=== PATIENT | female | born 1985 | race Caucasian/White ===

== ENCOUNTER 2017-02-22 13:37 | Emergency (ER) | payer OTHER ==
[~2017-02-22] VITALS: Ht 152.4 cm; Wt 54.4 kg
[~2017-02-22 13:37] MED LIST: AMOXIL500 MG PO; ANTIBIOTIC O500 U/GM TP; AUGMENTIN 875 M1 TAB PO; AUGMENTIN400 MG/5 M PO; AURALGAN 15 ML15 ML OT; BUSPAR15 MG PO; CELEXA20 MG PO; CEPHALEXIN500 M1 PO; CIPRO250 MG PO; DARVOCET N 1001 TAB PO; DOXYCYCLINE MO100 MG PO; FLONASE 0.05% 121 EA NAS; MOTRIN600 MG PO; MOTRIN800 MG PO; NAPROXEN SOD550 MG PO; NORCO 5-325 TA1 EACH PO; PHENERGAN W/ DE30 ML PO; PREDNICOT10 MG PO; SEPTRA DS 800 M1 TAB PO; TRAMADOL HCL50 MG PO; XANAX0.5 MG PO; ZOFRAN ODT4 MG SL; ZOLOFT25 MG PO; ZOLOFT50 MG PO; ZYRTEC10 M2 PO
[2017-02-22] MEDS ORDERED: CLARITIN10 M1 PO (13:46)
[2017-02-22] MEDS ORDERED: XANAX0.5 MG PO (13:46)
[2017-02-22 14:26] LABS: BASO % 0.3 % (0.0-1.0); EOS % 0.4 % (1.0-4.0); HEMATOCRIT 39.9 % (37.0-47.0); HEMOGLOBIN 13.2 g/dl (12.0-16.0); LYMPH # 0.8 10*3/uL (1.3-4.4); LYMPH % 11.4 % (27.0-41.0); MEAN CELL VOLUME 86.9 fl (81.0-99.0); MEAN CORPUSCULAR HGB 28.8 pg (27.0-31.0); MEAN CORPUSCULAR HGB CONC 33.1 g/dl (33.0-37.0); MEAN PLATELET VOLUME 9.9 fl (9.6-12.3); MONO # 0.4 10*3/uL (0.1-1.0); MONO % 4.9 % (3.0-9.0); NEUT # 5.9 10*3/uL (2.3-7.9); NEUT % 82.7 % (47.0-73.0); PLATELET COUNT AUTOMATED 275 10*3/uL (130-400); RED BLOOD COUNT 4.59 10*6/uL (4.10-5.10); RED CELL DISTRI WIDTH 12.6 % (0-14.5); WHITE BLOOD COUNT 7.2 10*3/uL (4.8-10.8)
[2017-02-22 14:42] LABS: ALBUMIN 3.8 gm/dl (3.1-4.5); ALKALINE PHOSPHATASE 46 U/L (45-117); BILIRUBIN, TOTAL 0.6 mg/dl (0.2-1.0); BUN 13 mg/dl (7-24); CARBON DIOXIDE 24 mmol/L (21-32); CHLORIDE 107 mmol/L (98-107); EST GLOM FILT AFRICAN AMERICAN > 60 ml/min; GLUCOSE 94 mg/dL (65-99); POTASSIUM 3.2 mmol/L (3.5-5.1); SGOT/AST 20 IU/L (3-35); SGPT/ALT 28 U/L (12-78); SODIUM 141 mmol/L (136-145); TOTAL PROTEIN 7.4 gm/dL (6.4-8.2)
[2017-02-22 15:39] LABS: BILIRUBIN NEGATIVE (NEGATIVE); BLOOD NEGATIVE (NEGATIVE); CLARITY CLOUDY (CLEAR); COLOR YELLOW (YELLOW); GLUCOSE NEGATIVE (NEGATIVE); KETONE 1+ (NEGATIVE); LEUKO ESTERASE TRACE (NEGATIVE); NITRITE NEGATIVE (NEGATIVE); PROTEIN NEGATIVE (NEGATIVE)
[2017-02-22 15:48] LABS: BACTERIA 3+; EPITHELIAL CELLS 30-35; URINE REFLEX COMMENT YES (NO)
[2017-02-22] MEDS ORDERED: ZOFRAN ODT4 MG SL (15:51)
[2017-02-22] MEDS ORDERED: K-TAB20 MEQ PO (15:51)
== END 2017-02-22 16:33 | disposition home or self-care (01) ==
LOC: ED 13:37
PROVIDERS: Physician Assistant
DX: K52.9 Noninfective gastroenteritis and colitis, unspecified (principal); Z98.890 Other specified postprocedural states; Z79.899 Other long term (current) drug therapy

== ENCOUNTER 2017-06-15 04:28 | Emergency (ER) | payer OTHER ==
[~2017-06-15] VITALS: Ht 152.4 cm; Wt 59.0 kg
[~2017-06-15 04:28] MED LIST changes: +CLARITIN10 M1 PO; +K-TAB20 MEQ PO
[2017-06-15 04:54] LABS: BILIRUBIN NEGATIVE (NEGATIVE); BLOOD NEGATIVE (NEGATIVE); CLARITY CLOUDY (CLEAR); COLOR YELLOW (YELLOW); GLUCOSE NEGATIVE (NEGATIVE); KETONE NEGATIVE (NEGATIVE); LEUKO ESTERASE 1+ (NEGATIVE); NITRITE NEGATIVE (NEGATIVE); PROTEIN NEGATIVE (NEGATIVE); UROBILINOGEN 0.2 E.U./dl (0.2-1.0)
[2017-06-15] MEDS ORDERED: NAPROSYN500 MG PO (04:55)
[2017-06-15] MEDS ORDERED: NORCO 5-325 TA1 EACH PO (04:55)
[2017-06-15] MEDS ORDERED: Orphenadrine C100 MG PO (04:55)
[2017-06-15 05:02] LABS: BACTERIA 3+; EPITHELIAL CELLS 20-25; URINE REFLEX COMMENT YES (NO)
[2017-06-15] MEDS ORDERED: MACROBID100 M1 PO (05:14)
== END 2017-06-15 05:31 | disposition home or self-care (01) ==
LOC: ED 04:28
PROVIDERS: Emergency Medicine Emergency Medical Services
DX: N39.0 Urinary tract infection, site not specified (principal); F17.200 Nicotine dependence, unspecified, uncomplicated; Z79.899 Other long term (current) drug therapy

== ENCOUNTER 2017-11-21 22:05 | Emergency (ER) | payer OTHER ==
[~2017-11-21] VITALS: Ht 152.4 cm; Wt 63.5 kg
[~2017-11-21 22:05] MED LIST changes: +MACROBID100 M1 PO; +NAPROSYN500 MG PO; +Orphenadrine C100 MG PO
[2017-11-21 22:24] LABS: BILIRUBIN NEGATIVE (NEGATIVE); BLOOD NEGATIVE (NEGATIVE); CLARITY CLOUDY (CLEAR); COLOR YELLOW (YELLOW); GLUCOSE NEGATIVE (NEGATIVE); KETONE NEGATIVE (NEGATIVE); LEUKO ESTERASE 1+ (NEGATIVE); NITRITE NEGATIVE (NEGATIVE)
[2017-11-21 22:30] LABS: BACTERIA 2+; EPITHELIAL CELLS 15-20; RBC 0-2 rbc/hpf (0-2)
[2017-11-21] MEDS ORDERED: KETOROLAC10 MG PO (23:11)
[2017-11-21] MEDS ORDERED: Orphenadrine C100 MG PO (23:11)
== END 2017-11-21 23:26 | disposition home or self-care (01) ==
LOC: ED 22:05
PROVIDERS: Emergency Medicine Emergency Medical Services
DX: M54.5 Low back pain (principal); Z79.899 Other long term (current) drug therapy

== ENCOUNTER 2018-02-24 22:56 | Emergency (ER) | payer OTHER ==
[~2018-02-24] VITALS: Ht 152.4 cm; Wt 62.6 kg
[~2018-02-24 22:56] MED LIST changes: +KETOROLAC10 MG PO
[2018-02-24] MEDS ORDERED: AMITRIPTYLINE25 MG PO (23:01)
[2018-02-25] MEDS ORDERED: MEDROL DOSEPAK4 MG PO (01:22)
[2018-02-25] MEDS ORDERED: KETOROLAC10 MG PO (01:22)
== END 2018-02-25 01:33 | disposition home or self-care (01) ==
LOC: ED 22:56
DX: M54.5 Low back pain (principal); Z79.899 Other long term (current) drug therapy; Z98.890 Other specified postprocedural states

== ENCOUNTER 2019-08-27 20:01 | Emergency (ER) | payer OTHER ==
[~2019-08-27] VITALS: Ht 152.4 cm; Wt 59.0 kg
[~2019-08-27 20:01] MED LIST changes: +AMITRIPTYLINE25 MG PO; +MEDROL DOSEPAK4 MG PO; +SEPTDS PO
[2019-08-27] MEDS ORDERED: KEFLEX500 M1 PO (20:20)
== END 2019-08-27 20:28 | disposition home or self-care (01) ==
LOC: ED 20:01
DX: S61.213A Laceration without foreign body of left middle finger without damage to nail, initial encounter (principal); W26.0XXA Contact with knife, initial encounter; Y93.89 Activity, other specified; Y92.89 Other specified places as the place of occurrence of the external cause; Y99.8 Other external cause status

== ENCOUNTER 2020-01-23 12:49 | Emergency (ER) | payer OTHER ==
[~2020-01-23] VITALS: Ht 152.4 cm; Wt 59.0 kg
[~2020-01-23 12:49] MED LIST changes: +KEFLEX500 M1 PO
[2020-01-23 14:32] LABS: BASO % 0.6 % (0.0-1.0); HEMATOCRIT 40.7 % (37.0-47.0); HEMOGLOBIN 13.3 g/dl (12.0-16.0); LYMPH # 1.2 10*3/uL (1.3-4.4); LYMPH % 21.1 % (27.0-41.0); MEAN CELL VOLUME 88.1 fl (81.0-99.0); MEAN CORPUSCULAR HGB 28.8 pg (27.0-31.0); MEAN CORPUSCULAR HGB CONC 32.7 g/dl (33.0-37.0); MONO # 0.6 10*3/uL (0.1-1.0); MONO % 11.4 % (3.0-9.0); NEUT # 3.6 10*3/uL (2.3-7.9); NEUT % 66.5 % (47.0-73.0); PLATELET COUNT AUTOMATED 323 10*3/uL (130-400); RED BLOOD COUNT 4.62 10*6/uL (4.10-5.10); RED CELL DISTRI WIDTH 12.9 % (0-14.5); WHITE BLOOD COUNT 5.5 10*3/uL (4.8-10.8)
[2020-01-23 14:47] LABS: ALBUMIN 4.2 gm/dl (3.1-4.5); BUN 8 mg/dl (7-24); CHLORIDE 104 mmol/L (98-107); POTASSIUM 3.1 mmol/L (3.5-5.1); SGOT/AST 21 IU/L (3-35); SGPT/ALT 26 U/L (12-78); SODIUM 139 mmol/L (136-145); TOTAL PROTEIN 7.9 gm/dL (6.4-8.2)
[2020-01-23 14:48] LABS: ALKALINE PHOSPHATASE 55 U/L (45-117)
[2020-01-23 14:51] LABS: BILIRUBIN NEGATIVE (NEGATIVE); CLARITY SL CLOUDY (CLEAR); COLOR YELLOW (YELLOW); GLUCOSE NEGATIVE (NEGATIVE)
[2020-01-23 14:52] LABS: BLOOD NEGATIVE (NEGATIVE); KETONE NEGATIVE (NEGATIVE); LEUKO ESTERASE 1+ (NEGATIVE); NITRITE NEGATIVE (NEGATIVE); UROBILINOGEN 0.2 E.U./dl (0.2-1.0)
[2020-01-23 14:57] LABS: BACTERIA 2+; EPITHELIAL CELLS 15-20; RBC 0-2 rbc/hpf (0-2)
[2020-01-23] MEDS ORDERED: SEPTDS PO (16:57)
== END 2020-01-23 17:00 | disposition home or self-care (01) ==
LOC: ED 12:49
PROVIDERS: Internal Medicine
DX: N39.0 Urinary tract infection, site not specified (principal); R07.89 Other chest pain; R05 Cough; R06.02 Shortness of breath; F17.200 Nicotine dependence, unspecified, uncomplicated; Z79.2 Long term (current) use of antibiotics

== ENCOUNTER → 2023-04-05 | Outpatient (CLI) | payer OTHER | END | disposition home or self-care (01) | LOC: LAB 14:35 | PROVIDERS: ATTEND Nurse Practitioner Family | DX: N30.00 Acute cystitis without hematuria (principal) ==

== ENCOUNTER 2024-08-14 19:13 | Emergency (ER) | payer OTHER ==
[~2024-08-14] VITALS: Ht 152.4 cm; Wt 63.5 kg
[2024-08-14 20:16] LABS: BASO # 0.1 10*3/uL (0.0-0.1); BASO % 0.5 % (0.0-1.0); EOS % 0.4 % (1.0-4.0); HEMATOCRIT 39.6 % (37.0-47.0); LYMPH % 20.3 % (27.0-41.0); MEAN CELL VOLUME 88.4 fl (81.0-99.0); MEAN CORPUSCULAR HGB 28.1 pg (27.0-31.0); MEAN CORPUSCULAR HGB CONC 31.8 g/dl (33.0-37.0); MEAN PLATELET VOLUME 10.2 fl (9.6-12.3); MONO # 0.7 10*3/uL (0.1-1.0); MONO % 7.3 % (3.0-9.0); NEUT % 71.1 % (47.0-73.0); PLATELET COUNT AUTOMATED 356 10*3/uL (130-400); RED BLOOD COUNT 4.48 10*6/uL (4.10-5.10); RED CELL DISTRI WIDTH 13.8 % (0-14.5); WHITE BLOOD COUNT 9.8 10*3/uL (4.8-10.8)
[2024-08-14 20:30] LABS: BUN 15 mg/dl (9-23); CHLORIDE 104 mmol/L (98-107); POTASSIUM 3.9 mmol/L (3.4-5.1)
[2024-08-14] MEDS ORDERED: PREDNISONE50 MG PO (21:00)
[2024-08-14] MEDS ORDERED: DEXAMETHASONE 4 MG TAB PO ONE (21:00)
[2024-08-14] MEDS ORDERED: AZITHROMYCIN 250 MG TAB PO ONE (21:00)
[2024-08-14] MEDS ORDERED: ZITHROMAX250 MG PO (21:00)
[2024-08-14] MEDS ORDERED: VENT7GM INH (21:08)
== END 2024-08-14 21:10 | disposition home or self-care (01) ==
LOC: ED 19:13
PROVIDERS: Nurse Practitioner Family
DX: J98.4 Other disorders of lung (principal); F41.9 Anxiety disorder, unspecified; Z98.890 Other specified postprocedural states

== ENCOUNTER 2024-12-17 20:32 | Emergency (ER) | payer OTHER ==
[~2024-12-17] VITALS: Ht 152.4 cm; Wt 68.0 kg
[~2024-12-17 20:32] MED LIST changes: +PREDNISONE50 MG PO; +VENT7GM INH; +ZITHROMAX250 MG PO
[2024-12-17] MEDS ORDERED: methylPREDNISolone sod succ 125 MG VIAL IM ONE (22:30)
[2024-12-17] MEDS ORDERED: ZITHROMAX250 MG PO (22:35)
[2024-12-17] MEDS ORDERED: PREDNISONE20 M1 PO (22:35)
== END 2024-12-17 22:39 | disposition home or self-care (01) ==
LOC: ED 20:32
DX: B34.9 Viral infection, unspecified (principal); Z20.822 Contact with and (suspected) exposure to COVID-19; F41.9 Anxiety disorder, unspecified; H92.03 Otalgia, bilateral; Z98.890 Other specified postprocedural states

== ENCOUNTER 2025-02-24 20:14 | Inpatient (IN) | payer OTHER ==
[~2025-02-24] VITALS: Ht 152.4 cm; Wt 74.2 kg
[~2025-02-24 20:14] MED LIST changes: +PREDNISONE20 M1 PO
[2025-02-24 20:26] VITALS: BP 119/68
[2025-02-24] MEDS ORDERED: Dicyclomine Hydrochloride 20 MG/10 ML OSYR PO STA (20:39)
[2025-02-24] MEDS ORDERED: Lidocaine Hydrochloride 15 ML UDC PO STA (20:39)
[2025-02-24] MEDS ORDERED: MG-AL HYDROXIDE/SIMETICONE 30 ML UDC PO STA (20:39)
[2025-02-24 20:54] LABS: BASO % 0.5 % (0.0-1.0); EOS % 0.3 % (1.0-4.0); HEMATOCRIT 36.8 % (37.0-47.0); MEAN CELL VOLUME 85.8 fl (81.0-99.0); MEAN CORPUSCULAR HGB 27.5 pg (27.0-31.0); MEAN CORPUSCULAR HGB CONC 32.1 g/dl (33.0-37.0); MEAN PLATELET VOLUME 9.7 fl (9.6-12.3); MONO # 0.7 10*3/uL (0.1-1.0); NEUT # 5.5 10*3/uL (2.3-7.9); NEUT % 62.3 % (47.0-73.0); PLATELET COUNT AUTOMATED 364 10*3/uL (130-400); RED BLOOD COUNT 4.29 10*6/uL (4.10-5.10); RED CELL DISTRI WIDTH 13.2 % (0-14.5); WHITE BLOOD COUNT 8.8 10*3/uL (4.8-10.8)
[2025-02-24 21:05] LABS: ACT PARTIAL THROMBO TIME 24.5 SECONDS (20.0-32.1)
[2025-02-24 21:08] LABS: URINE AMPHETAMINES Negative (1000ng/ml); URINE BARBITURATES Negative (200ng/ml); URINE BENZODIAZEPINES Negative (200ng/ml); URINE CANNABINOIDS (THC) Negative (50ng/ml); URINE COCAINE Negative (300ng/ml); URINE METHADONE Negative (300ng/ml); URINE OPIATES Negative (300ng/ml); URINE PHENCYCLIDINE Negative (25ng/ml)
[2025-02-24 21:11] LABS: BUN 13 mg/dl (9-23); CHLORIDE 105 mmol/L (98-107); POTASSIUM 3.2 mmol/L (3.4-5.1)
[2025-02-24 21:13] LABS: ETHYL ALCOHOL < 3.0 mg/dl (<3)
[2025-02-24] MEDS ORDERED: MORPHINE Sulfate 2 MG/ML SYR IM ONE (22:55)
[2025-02-25 00:14] VITALS: BP 118/65
[2025-02-25] MEDS ORDERED: POTASSIUM CHLORIDE 20 MEQ TAB PO ONE (00:35)
[2025-02-25] MEDS ORDERED: ACETAMINOPHEN 650 MG SUPP R PRN (00:35)
[2025-02-25] MEDS ORDERED: Magnesium Hydroxide 30 ML UDC PO PRN (00:35)
[2025-02-25] MEDS ORDERED: BISACODYL 10 MG SUPP R PRN (00:35)
[2025-02-25] MEDS ORDERED: Ondansetron Hydrochloride 4 MG/2 ML VIAL IV PRN (00:35)
[2025-02-25] MEDS ORDERED: Acetaminophen/Hydrocodone 5 MG/325 MG TABLET PO PRN (00:35)
[2025-02-25] MEDS ORDERED: ACETAMINOPHEN 325 MG TAB PO PRN (00:35)
[2025-02-25] MEDS ORDERED: BISACODYL 5 MG TAB PO PRN (00:35)
[2025-02-25] MEDS ORDERED: ATORVASTATIN CALCIUM 40 MG TABLET PO SCH (00:55)
[2025-02-25] MEDS ORDERED: Metoprolol Tartrate 25 MG TAB PO SCH (00:55)
[2025-02-25] MEDS ORDERED: ASPIRIN 325 MG ENTERIC COATED PO ONE (00:55)
[2025-02-25 06:31] LABS: BASO % 0.5 % (0.0-1.0); EOS # 0.1 10*3/uL (0.0-0.4); EOS % 0.8 % (1.0-4.0); HEMATOCRIT 36.2 % (37.0-47.0); MEAN CELL VOLUME 86.6 fl (81.0-99.0); MEAN CORPUSCULAR HGB CONC 32.3 g/dl (33.0-37.0); MEAN PLATELET VOLUME 9.6 fl (9.6-12.3); MONO # 0.5 10*3/uL (0.1-1.0); MONO % 7.8 % (3.0-9.0); NEUT # 3.3 10*3/uL (2.3-7.9); NEUT % 56.4 % (47.0-73.0); PLATELET COUNT AUTOMATED 357 10*3/uL (130-400); RED BLOOD COUNT 4.18 10*6/uL (4.10-5.10); RED CELL DISTRI WIDTH 13.3 % (0-14.5); WHITE BLOOD COUNT 5.9 10*3/uL (4.8-10.8)
[2025-02-25 07:20] LABS: ALKALINE PHOSPHATASE 81 U/L (46-116); BUN 16 mg/dl (9-23); CHLORIDE 106 mmol/L (98-107); CHOLESTEROL 118 mg/dL (<200); FREE T4 1.55 ng/dl (0.89-1.76); LDL CHOLESTEROL 65 mg/dL (9-159); SGPT/ALT 318 U/L (5-49); TOTAL PROTEIN 6.5 gm/dL (6.0-8.0); TRIGLYCERIDES 61 mg/dl (<150)
[2025-02-25 08:00] VITALS: BP 100/60
[2025-02-25] MEDS ORDERED: Enoxaparin Sodium 40 MG/0.4 ML SYR SC SCH (10:00)
[2025-02-25] MEDS ORDERED: ASPIRIN ENTERIC COATED 81 MG TAB PO SCH (10:00)
[2025-02-25 12:00] VITALS: BP 107/61
[2025-02-25 16:00] VITALS: BP 98/64
[2025-02-25 20:00] VITALS: BP 110/67
[2025-02-26] VITALS (10 sets, daily range): BP systolic 96–132; BP diastolic 56–81
[2025-02-26 06:21] LABS: BASO # 0.1 10*3/uL (0.0-0.1); BASO % 0.8 % (0.0-1.0); EOS # 0.1 10*3/uL (0.0-0.4); EOS % 1.6 % (1.0-4.0); HEMATOCRIT 36.6 % (37.0-47.0); MEAN CELL VOLUME 86.5 fl (81.0-99.0); MEAN CORPUSCULAR HGB 28.1 pg (27.0-31.0); MEAN CORPUSCULAR HGB CONC 32.5 g/dl (33.0-37.0); MONO # 0.5 10*3/uL (0.1-1.0); MONO % 7.5 % (3.0-9.0); NEUT # 3.1 10*3/uL (2.3-7.9); PLATELET COUNT AUTOMATED 359 10*3/uL (130-400); RED BLOOD COUNT 4.23 10*6/uL (4.10-5.10); RED CELL DISTRI WIDTH 13.4 % (0-14.5); WHITE BLOOD COUNT 6.3 10*3/uL (4.8-10.8)
[2025-02-26 06:35] LABS: ALKALINE PHOSPHATASE 98 U/L (46-116); BUN 13 mg/dl (9-23); CHLORIDE 105 mmol/L (98-107); LIPASE 104 U/L (12-53); POTASSIUM 3.7 mmol/L (3.4-5.1); SGPT/ALT 496 U/L (5-49); TOTAL PROTEIN 6.5 gm/dL (6.0-8.0)
[2025-02-26] MEDS ORDERED: BUPivacaine 0.5% 30 ML IV ONE (13:53)
[2025-02-26] MEDS ORDERED: SODIUM CHLORIDE 0.9% 100 ML IV ONE (14:15)
[2025-02-26] MEDS ORDERED: IOHEXOL 240 MG/ML 20 ML SOL ONE ×2 (14:17→14:25)
[2025-02-26] MEDS ORDERED: Lactated Ringer's Solution 1,000 ML IV ONE ×2 (14:26→16:07)
[2025-02-26] MEDS ORDERED: ACETAMINOPHEN 100 ML IV ONE (14:26)
[2025-02-26] MEDS ORDERED: ceFAZolin sodium/sodium chlor 20 ML IV ONE (14:52)
[2025-02-26] MEDS ORDERED: HYDROmorphONE Hydrochloride 0.5 MG/0.5 ML SYRINGE IV PRN ×2 (16:40→17:35)
[2025-02-26] MEDS ORDERED: HYDROmorphONE Hydrochloride 0.5 MG/0.5 ML SYRINGE ONE ×2 (16:59→17:09)
[2025-02-26] MEDS ORDERED: fentaNYL CITRATE 100 MCG/2 ML VIAL IV ONE ×2 (17:35→22:12)
[2025-02-26] MEDS ORDERED: SUGAMMADEX SODIUM 200 MG/2 ML VIAL IV ONE (22:12)
[2025-02-26] MEDS ORDERED: PROPOFOL 200 MG/20 ML VIAL IV ONE (22:12)
[2025-02-26] MEDS ORDERED: SEVOFLURANE 250 ML BOT INH ONE (22:12)
[2025-02-26] MEDS ORDERED: Lidocaine Hydrochloride 2% 5 ML SDV IM ONE (22:12)
[2025-02-26] MEDS ORDERED: Midazolam Hydrochloride 2 MG/2 ML VIAL IV ONE (22:12)
[2025-02-26] MEDS ORDERED: Dexamethasone Sodium Phospha 4 MG/ML VIAL IV ONE (22:12)
[2025-02-26] MEDS ORDERED: ROCURONIUM BROMIDE 50 MG/5 ML SYRINGE IV ONE (22:12)
[2025-02-26] MEDS ORDERED: Ondansetron Hydrochloride 4 MG/2 ML VIAL IV ONE (22:12)
[2025-02-27] VITALS: BP 139/82
[2025-02-27] MEDS ORDERED: SODIUM CHLORIDE 0.9% 1,000 ML IV SCH
[2025-02-27 05:06] LABS: HBsAG SCREEN Negative (Negative); HCV Ab Non Reactive (Non Reactive); HEP B CORE Ab, IgM Negative (Negative)
[2025-02-27 06:40] LABS: BASO % 0.2 % (0.0-1.0); HEMATOCRIT 36.5 % (37.0-47.0); MEAN CELL VOLUME 88.2 fl (81.0-99.0); MEAN CORPUSCULAR HGB CONC 31.8 g/dl (33.0-37.0); MEAN PLATELET VOLUME 10.1 fl (9.6-12.3); MONO # 1.1 10*3/uL (0.1-1.0); MONO % 6.3 % (3.0-9.0); NEUT # 14.2 10*3/uL (2.3-7.9); NEUT % 82.8 % (47.0-73.0); PLATELET COUNT AUTOMATED 371 10*3/uL (130-400); RED BLOOD COUNT 4.14 10*6/uL (4.10-5.10); RED CELL DISTRI WIDTH 13.2 % (0-14.5); WHITE BLOOD COUNT 17.1 10*3/uL (4.8-10.8)
[2025-02-27 07:15] LABS: ALKALINE PHOSPHATASE 93 U/L (46-116); BUN 9 mg/dl (9-23); CHLORIDE 103 mmol/L (98-107); POTASSIUM 3.4 mmol/L (3.4-5.1); SGPT/ALT 335 U/L (5-49); TOTAL PROTEIN 6.7 gm/dL (6.0-8.0)
[2025-02-27 08:00] VITALS: BP 130/81
[2025-02-27 12:00] VITALS: BP 108/66
[2025-02-27 16:00] VITALS: BP 112/69
[2025-02-27 20:00] VITALS: BP 113/70
[2025-02-28] VITALS: BP 112/65
[2025-02-28 08:00] VITALS: BP 122/83
[2025-02-28] MEDS ORDERED: COLACE100 MG PO (10:46)
[2025-02-28] MEDS ORDERED: ONDANSETRON HYDR4 MG PO (10:46)
[2025-02-28] MEDS ORDERED: HYDROCODONE-AC1 EAC1 PO (10:46)
== END 2025-02-28 11:50 | disposition home or self-care (01) | DRG 263 ==
LOC: ED 20:14 → 5E 23:35 → EDHOLD 23:35 → 5E 23:58
PROVIDERS: Internal Medicine; Student in an Organized Health Care Education/Training Program; ADMIT Internal Medicine; ATTEND Internal Medicine
PROC: 0FT44ZZ Resection of Gallbladder, Percutaneous Endoscopic Approach (ICD-10-PCS; principal; 2025-02-26)
DX: K80.12 Calculus of gallbladder with acute and chronic cholecystitis without obstruction (principal); E87.6 Hypokalemia; D64.9 Anemia, unspecified; E66.3 Overweight; R73.9 Hyperglycemia, unspecified; R74.01 Elevation of levels of liver transaminase levels; Z82.49 Family history of ischemic heart disease and other diseases of the circulatory system; Z79.899 Other long term (current) drug therapy; Z68.31 Body mass index [BMI] 31.0-31.9, adult

== ENCOUNTER → 2025-03-08 | Outpatient (CLI) | payer OTHER ==
[~2025-03-08] MED LIST changes: +COLACE100 MG PO; +HYDROCODONE-AC1 EAC1 PO; +ONDANSETRON HYDR4 MG PO
== END | disposition home or self-care (01) ==
LOC: RESCLI 08:35
PROVIDERS: ATTEND Student in an Organized Health Care Education/Training Program
DX: Z00.00 Encounter for general adult medical examination without abnormal findings (principal); Z90.49 Acquired absence of other specified parts of digestive tract; Z79.899 Other long term (current) drug therapy; Z98.890 Other specified postprocedural states

== ENCOUNTER 2025-10-27 11:11 | Emergency (ER) | payer OTHER ==
[~2025-10-27] VITALS: Ht 152.4 cm; Wt 63.5 kg
[2025-10-27] MEDS ORDERED: Dexamethasone Sodium Phospha 20 MG/5 ML VIAL IM ONE (12:00)
== END 2025-10-27 12:11 | disposition home or self-care (01) ==
LOC: ED 11:11
DX: H01.131 Eczematous dermatitis of right upper eyelid (principal); H01.132 Eczematous dermatitis of right lower eyelid; F41.9 Anxiety disorder, unspecified; Z98.890 Other specified postprocedural states; Z90.89 Acquired absence of other organs